=== PATIENT | male | born 1960 | race African-American/Black ===

== ENCOUNTER → 2017-01-06 | Emergency (ER) | payer OTHER ==
[~2017-01-06] VITALS: Ht 167.6 cm; Wt 45.4 kg
[~2017-01-06] MED LIST: ASPIR-LOW81 MG PO; ASPIRIN81 MG PO; ATORVASTATIN CA40 MG PO; CIPRO500 MG PO; CLOPIDOGREL75 MG PO; GLUCOPHAGE500 MG PO; HUMALOG100 UNITS/ SUB-Q; HYDROCODON-ACE1 EA10 PO; INSULIN SYRING1 EA11 MISC; K-PHOS NEUTRAL T1 EA PO; LANTUS100 UNITS/ SUB-Q; LEVEMIR100 UNIT/1 SUB-Q; METOPROLOL SUCC50 MG PO; NOVOLOG FL100 UNIT/1 SUB-Q; NOVOLOG100 UNIT/2 SUB-Q; NOVOLOG100 UNITS/ SUB-Q; OMEPRAZOLE40 MG PO; PANTOPRAZOLE SO40 MG PO; RANITIDINE HCL150 M1 PO; SIMVASTATIN20 MG PO; SUCRALFATE1 GM PO
--- NOTE | 2017-01-07 20:52 | EKG ---
[facility] [address] [facility] [address] [facility] [place] [address] Signed Sinus tachycardia Biatrial enlargement Abnormal ECG When compared with ECG of 01-NOV-2016 11:19, Criteria for Anterior infarct are no longer present Criteria for Anterolateral infarct are no longer present ST no longer elevated in Anterior leads Nonspecific T wave abnormality, improved in Inferior leads Confirmed by STEFANIA ORTIZ MD ([id number]) on 01/07/2017 8:51:58 PM Electronically Signed By: STEFANIA ORTIZ MD 01/07/172051 PATIENT NAME: MACEY PADRON Electrocardiogram DATE OF : 56 PHYSICIAN: STEFANIA ORTIZ MD REPORT #: [id number] REPORT IS CONFIDENTIAL AND NOT TO BE RELEASED WITHOUT AUTHORIZATION
== END ==
LOC: ED 20:21
DX: L03.116 Cellulitis of left lower limb (principal); E10.9 Type 1 diabetes mellitus without complications; I25.2 Old myocardial infarction; F17.200 Nicotine dependence, unspecified, uncomplicated; Z95.5 Presence of coronary angioplasty implant and graft; Z79.4 Long term (current) use of insulin; Z79.899 Other long term (current) drug therapy
CPT/HCPCS: 36415; 71010; 80053; 82010; 82800; 84484; 85025; 93005; 93010; 96361; 96374; 96375; 99284; G0480; J1200; J2405; J2765; J7030

== ENCOUNTER 2017-02-11 08:54 | Inpatient (IN) | payer OTHER ==
[~2017-02-11] VITALS: Ht 167.6 cm; Wt 45.4 kg
[~2017-02-11 08:54] MED LIST changes: -ASPIR-LOW81 MG PO; -INSULIN SYRING1 EA11 MISC; -LEVEMIR100 UNIT/1 SUB-Q; -NOVOLOG100 UNIT/2 SUB-Q; -PANTOPRAZOLE SO40 MG PO
--- NOTE | 2017-02-11 14:40 | NUR ---
ASSISTED NURSE IN GETTING PATIENT SET UP IN ROOM. TOOK VITAL SIGNS AND ASSISTED IN PUTTING ON TELEMETRY.
--- NOTE | 2017-02-11 15:40 | NUR ---
PATIENT ADMIT FROM ED. TO FLOOR VIA STRETCHER. PATIENT SELF TRANSFER TO BED. IV SITE PATENT AND FLUID IS INFUSING. ADMISSION ASSESSMENT COMPLETED. PATIENT REPORTS NO PAIN, SKIN DRY WARM. LUNGS CLEAR BUT DIM IN THE BASES.PERIPHERAL PULSES PRESENT AND PALPABLE. HEART MONITOR IN PLACE. PATIENT IS TACHY IN THE UPPER 100-115BPM. PATIENT WAS MEDICATED.CONTRACTURE NOTED IN THE LEFT ARM. FLACCIDITY IN THE LEFT ARM. SLIGHT LEFT DROOP. HX OF STROKE COUPLE YEARS AGO. POSITIVE BOWEL TONES.
--- NOTE | 2017-02-11 17:00 | NUR ---
2 RNs ASSISTED PATIENT TO BATHROOM, PATIENT IS A LITTLE UNSTEADY. PATIENT ASSISTED BACK TO BED WITH NO DIFFICULTY. CBG CHECKED. PATIENT DENIES ANY PAIN. CALL LIGHT WITHIN REACH.
--- NOTE | 2017-02-11 18:26 | NUR ---
PATIENT ADMIT FROM ED FOR GASTRIC ULCER. CLEAR LIQUID DIET. REPORTS NO PAIN OR NAUSEA SINCE ARRIVING TO THE FLOOR. IV SITE IN RIGHT EJ FLUSHED WELL, IV FLUID INFUSING. PATIENT IS ON TELE #6 SINUS RHYTHM. PATIENT HAD LEFT ARM CONTRACTURE AND FLACIDITY SECONDAY TO STROKE IN THE PAST. CBG CHECK AND S/S INSULIN + LEVEMIR. LAST CBG 167. GENERALIZED WEAKNESS, 1-2 PERSONS ASSIST TO BATHROOM. SKIN INTACT.
--- NOTE | 2017-02-11 19:03 | EKG ---
[facility] [address] [facility] [place] [address] Signed Sinus tachycardia No signs of right ventricular infarction Abnormal ECG When compared with ECG of 11-FEB-2017 09:00, (Unconfirmed) Anterolateral infarct is now present Nonspecific T wave abnormality now evident in Anterior leads Confirmed by STEFANIA ORTIZ MD ([id number]) on 02/11/2017 7:03:47 PM Electronically Signed By: STEFANIA ORTIZ MD 02/11/17 1903 PATIENT NAME: VITOMACEY BRENT Electrocardiogram DATE OF : 56 PHYSICIAN: STEFANIA ORTIZ MD REPORT #: [id number] REPORT IS CONFIDENTIAL AND NOT TO BE RELEASED WITHOUT AUTHORIZATION
--- NOTE | 2017-02-11 19:03 | EKG ---
[facility] [address] [facility] [place] [address] Signed Sinus tachycardia Right atrial enlargement Left ventricular hypertrophy with repolarization abnormality Abnormal ECG When compared with ECG of 06-JAN-2017 20:37, Non-specific change in ST segment in Lateral leads Nonspecific T wave abnormality no longer evident in Anterior leads Confirmed by STEFANIA ORTIZ MD ([id number]) on 02/11/2017 7:03:12 PM Electronically Signed By: STEFANIA ORTIZ MD 02/11/17 1903 PATIENT NAME: VITOMACEY BRENT Electrocardiogram DATE OF : 56 PHYSICIAN: STEFANIA ORTIZ MD REPORT #: [id number] REPORT IS CONFIDENTIAL AND NOT TO BE RELEASED WITHOUT AUTHORIZATION
--- NOTE | 2017-02-11 19:10 | NUR ---
RECEIVED FROM DAY SHIFT RN. PATIENT IS RESTINGI N BED WITH EYES CLOSED. RR 17. CALL LIGHT IN REACH.
--- NOTE | 2017-02-11 21:40 | NUR ---
PATIENT ASSEMENT COMPLETED. PATIENT IS RESTING IN BED. PATIENTS EVENING MEDICATIONS GIVEN PER ORDER. PATIENT DENIES ANY PAIN OR NAUSEA. PATIENT IS ON TELE #6, SR, HR 96. PATIENT ASSISTED TO THE RESTROOM EARLIER BY DNA SEQUENCING ASSOCIATE. PATIENT WAS A SBA AND WAS STEADY ON HER FEET. PATIENT DENIES ANY FURTHER NEEDS AT THIS TIME. CALL LIGHT IN REACH.
--- NOTE | 2017-02-11 23:34 | NUR ---
PATIENT GIVEN SCHEDULED MEDICATION. VITALS TAKEN AND RECORDED. PATIENT GIVEN PRN MAALOX FOR HEARTBURN. PATIENT DENIES ANY FURTHER NEEDS. CALL LIGHT IN REACH.
--- NOTE | 2017-02-12 01:46 | NUR ---
PATIENTS VITALS TAKEN AND RECORDED. PATIENT DENIES ANY NEEDS. CALL LIGHT IN REACH.
--- NOTE | 2017-02-12 03:15 | NUR ---
PATIENT GIVEN PRN MAALOX FOR HEARTBURN. PATIENT DENIES ANY FURTHER NEEDS. CALL LIGHT IN REACH.
--- NOTE | 2017-02-12 04:20 | NUR ---
PATIENT RESTED WELL THROUGHOUT THE SHIFT. PATIENT IS A SBA. PATIENT IS ON CLEARS AND IS TOLERATING INTAKE WELL, NO NAUSEA NOTED. PATIENT USES FWW DURING AMBULATION. PATIENT IS ON TELE #6 AND HAS BEEN IN SR, HR IN THE 80'S. PATIENT IS AAOX3. PATIENT DOES HAVE SLURRED SPEECH AT TIMES. PATIENT HAS HX STROKE, LEFT SIDED WEAKNESS NOTED. PATIENT RECEIVED MAALOX X2 FOR HEARTBURN. PATIENT USES CALL LIGHT APPROPRIATELY.
--- NOTE | 2017-02-12 06:41 | NUR ---
PATIENTS MORNING MEDICATIONS GIVEN PER ORDER. PATIENTS BLOOD PRESSURE IS ON THE LOWER END. PLACED CALL TO DR ORTIZ. VERBAL ORDER RECEIVED, VERIFIED USING THE READBACK METHOD. PATIENT IS NOW RECEIVING A 500ML BOLUS. PATIENT DENIES ANY PAIN OR NAUSEA. PATIENT DENIES ANY HEARTBURN AT THIS TIME. PATIENT DENIES ANY NEEDS AT THIS TIME. CALL LIGHT IN REACH.
--- NOTE | 2017-02-12 07:31 | NUR ---
RECIEVED BEDSIDE REPORT FROM NICOL ROBISON. PT SLEEPING IN BED WITH BLANKETS OVER HEAD, PER HIS USUAL. IV BOLUS RUNNING 500ML/HR. PER MD, FINISH BOLUS AND ENCOURAGE TO USE RESTROOM, THEN BLADDER SCAN AND ADVISE.
--- NOTE | 2017-02-12 08:14 | NUR ---
PT VOIDED 125ML IN URINAL. BLADDER SCAN SHOWED 217ML IN BLADDER. DR ORTIZ ADVISED. HE IS OK WITH OUTPUT AT THIS TIME. AM BLOOD SUGAR 93. PT EATING CLEAR LIQUID TRAY AT THIS TIME.
--- NOTE | 2017-02-12 08:18 | NUR ---
patient was in bed, he asked for food but is on clears diet, he needed bladder scanned.
--- NOTE | 2017-02-12 09:50 | NUR ---
WENT IN TO DO PATEINTS VITAL SIGNS, HE WAS SLEEPING, HE DID NOT WANT A SHOWER.
--- NOTE | 2017-02-12 11:19 | NUR ---
PATIENT CALLING OUT. WENT TO ROOM. WARM BLANKET GIVEN TO PATIENT. ASSISTED WITH GETTING COMFORTABLE IN BED.
--- NOTE | 2017-02-12 11:39 | NUR ---
PT IS IN CHAIR AFTER PHYSICAL THERAPY EVAL. PT REQUESTED LINENS CHANGED AND SHOWER. LINENS CHANGED, SHOWER PLANNED FOR AFTER LUNCH.
--- NOTE | 2017-02-12 14:38 | NUR ---
SUPERVISOR GROUNDS REPORTED PT VOIDED 400ML AND HAD A BM PRIOR TO HIS SHOWER. SUPERVISOR GROUNDS REPORTED THAT HE TOLERATED WELL.
--- NOTE | 2017-02-12 15:33 | NUR ---
PATEINT HAD A SHOWER, AND DID WELL, AFTER HE LAID DOWN AND RELAXED IN BED WITH WARM BLANKETS.
--- NOTE | 2017-02-12 18:04 | NUR ---
PT UP WITH PHYSICAL THERAPY, USE CANE WHEN AMBULATING. PT NEEDS ENCOURAGEMENT TO GET UP AND VOID, BUT PASSING QS URINE. BM TODAY, SHOWER TODAY. ADVANCED DIET TO FULL LIQUIDS. PT TOLERATING WELL, NO NAUSEA/VOMITING. PT REPORTS BEING "VERY HUNGRY". LR AT 100ML/HR UNTIL EATING /DRINKING WELL.
--- NOTE | 2017-02-12 20:01 | NUR ---
recieved bedside report from dayshift carlton sloan. rn reported to night rn that md vee'd tele today. tele was laying on bedside table. cleaned tele and returned to ccu.
--- NOTE | 2017-02-12 22:25 | NUR ---
PT LAYING IN BED, WATCHING TV. PLEASENT DEMEANOR, ALERT AND ORIENTED X4, COOPERATIVE. PT EATING CHICKEN NOODLE SOUP. GAVE PM MEDICATION. GAVE TYLENOL FOR SLIGHTLY ELEVATED TEMPERATURE. AFTER GIVING THE MEDICAITONS AND RT INSTRUCTING ON USING INCENTIVE SPIROMETER, PT COMPLAINED OF NAUSEA AND DRY HEAVED, NO EMESIS THOUGH. GAVE ZOFRAN FOR NAUSEA. AFTER A FEW MINUTES NAUSEA PASSED. WILL CONTINUE TO MONITOR PT. PT HAS NO FURTHER NEEDS AT THIS TIME. CALL LIGHT IN REACH.
--- NOTE | 2017-02-13 00:40 | NUR ---
PT CALLED NURSES STATION, REPORTED FEELING LIKE HIS "BLOOD SUGAR IS LOW." BS 46, GAVE APPLE JUICE AND CHOCOLATE MILK; PT ALERT AND ORIENTED X4, BUT STATES HE FEELS COLD. RECHECKED BS, BS NOW 88. WILL CONTINUE TO MONITOR CLOSELY.
--- NOTE | 2017-02-13 02:24 | NUR ---
PT BS 150. HELD SS DUE TO LOW BS EARLER IN SHIFT. PT AWAKE, ALERT AND ORIENTED X4. NO COMPLAINTS AT THIS TIME. PLEASENT. CALL LIGHT IN REACH.
--- NOTE | 2017-02-13 05:08 | NUR ---
PT HAD SLEPT WELL MAJORITY OF SHIFT. EASILY AROUSED BY VOICE. ALERT AND ORIENTED X4. BS LOW OVERNIGHT, GAVE CHOCOLATE MILK AND JUICE, CAME UP TO WNL. HELD 0200 DOSE OF NOVOLOG FOR BS OF 150. PT USES CALL LIGHT APPROPRIATLY.
--- NOTE | 2017-02-13 07:25 | NUR ---
RECIEVED BEDSIDE REPORT FROM NICOL LLAMAS. PT IN BED, AWAKE, ALERT. AWAITING ARRIVAL OF BREAKFAST, STATED THAT HE IS HUNGRY.
--- NOTE | 2017-02-13 09:00 | NUR ---
PT REQUESTED DIET TO BE ADVANCED. ATE VERY LITTLE OF FULL LIQUID BREAKFAST. NOTFIED DR. ORTIZ VIA TELEPHONE THAT PT REQUESTED DIET BE ADVANCED, RECIEVED TORB TO ADVANCE DIET TO 1800 CALORIE ADA DIET.
--- NOTE | 2017-02-13 09:17 | NUR ---
PT ASSISTED TO ORDER ADA DIET BREAKFAST. PT DENIED PAIN. AM MEDICATIONS GIVEN. PT DENIED OTHER NEEDS.
--- NOTE | 2017-02-13 09:32 | NUR ---
PATIENT READY FOR SOLID FOOD BREAKFAST. TRAY BROUGHT IN WITH BOATENG, EGGS, AND TOAST. PATIENT ASKING IF WE COULD HELP HIM WITH HIS CALORIES. YES, WE WILL HELP HIM WITH ORDERING THE RIGHT AMOUNT OF FOOD. HE DOESN'T KNOW WHAT HIS NORMAL WEIGHT IS. HE IS RECENTLY HOMELESS. CANNOT TOLERATE TOMATO PRODUCTS DUE TO GASTRIC ULCER. COULD PROVIDE SOME GLUCERNA FOR PATIENT TO TAKE WITH HIM UPON DISCHARGE IF NEEDED.
--- NOTE | 2017-02-13 11:10 | NUR ---
CHECKED PT'S BG, 168. PT IN BED, STATED THAT HE WANTS TO REST. LIGHTS OFF PER PT REQUEST. DENIED NEEDS.
--- NOTE | 2017-02-13 14:03 | NUR ---
PT LAYING IN BED,ALERT AND ORIENTED. HE WAS STILL WORKING ON LUNCH. VERY PLEASANT DEMEANOR, SAID HE HAD SLEPT PRETTY GOOD. PT MENTIONED THAT HE WANTED TO REST, BUT WOULD LIKE FOR ME TO PRAY FOR HIM, WHICH I DID. WILL FOLLOW NEEDED
--- NOTE | 2017-02-13 14:08 | NUR ---
DID BLOOD SUGAR CHECK THIS MORNING AND AFTERNOON. WARM BLANKETS.
--- NOTE | 2017-02-13 15:27 | NUR ---
PATIENT QUEARIED TO WHERE HE WOULD LIKE TO BE DISCHARGED TO HE IS CURRENTLY HOMELESS. PATIENT FIRST STATED HIS SISTER'S HOME ([facility] [phone]) NAME AND NUMBER PROVIDED BY Cristina MACEY VITO. SPOKE TO PATIENT'S SISTER, LET HER KNOW WHO I WAS AND REC'D HER NUMBER FROM THE PATIENT. ASKED IF SHE WAS AWARE OF HER BROTHERS PLAN AND IF SHE WAS IN AGREEANCE. PATIENT'S SISTER KISHA STATED SHE WAS NOT PHYSICALLY CAPABLE OF TAKING CARE OF HER BROTHER. THE PATIENT IS HOMELESS AND NOT MANY OPTIONS FOR PLACEMENT. I CONTACTED THE [facility] FOR THE HOMELESS. THEY HAVE DORM PLACEMENT AVAILABLE THAT THE PATIENT CAN CHECK IN ANYTIME AFTER 1500 SEVEN DAYS A WEEK. THEY WILL PROVIDE THE PATIENT WITH A CLEAN AND SOBER ENVIRONMENT, TWO MEALS A DAY, HOT SHOWERS AND LAUNDRY ROM, SPIRITUAL ENCOURAGEMENT, RECOVERY PROGRAMS, LIFE COACHING, AND 30 DAY STAY FOR MEN. AT THE END OF THE 30 DAYS THE PATIENT CAN THEN OPT FOR ONE OF THE THREE OPTIONS: (1) REBUILDERS PROGRAM: A SPIRITUAL, LIFE TRANSFORMATION PROGRAM (12-14 MONTHS). (2) CONNECTIONS: AN EXTENDED-STAY, WORK PROGRAM (UP TO 4 MONTHS) OR (3) SELF EXIT: ALTERNATIVE HOUSING. SPOKE TO PATIENT WITH THE AVAILABLE OPTIONS AND HE IS IN AGREEANCE. THE PLAN IS TO D/C PATIENT AND SEND HIM WITH A CARE RIDE TO BUS MANAGER OF ORGANIZATIONAL DEVELOPMENT AT [facility] BEFORE 1330. BUS ARRIVES AT 1330 TO TAKE TO [facility] WHERE HE WILL BE DROPPED OFF. HE WILL THEN WALK A TOTAL OF THREE BLOCKS STRAIGHT DOWN THE ROAD TO HOUSING LOCATION WHERE HE CAN THEN CHECK IN. WE WILL PROVIDE PATIENT WITH FULL INSTRUCTION AND DETAILED MAP OF WHERE HE WILL GO AFTER DISCHARGE AND TO HIS NEW PLACEMENT LOCATION.
--- NOTE | 2017-02-13 17:47 | NUR ---
PATIENT HAD GIVEN SUMMER CHW NAME AND NUMBER OF SISTER. HE STATED HE WANTED A BUS TICKET TO MAN TO GO LIVE WITH HER. SISTER DENIES KNOWING THIS AND CANNOT TAKE CARE OF HIM. KENN WORKED WITH HIM FOR A PLAN ON GETTING TO A SKILLED NURSING IN [place] FOR DISCHARGE. I SPOKE TO PATIENT IN THE ROOM. HE STATES HE CANNOT RETURN TO A FRIENDS HOUSE HERE WHERE HE WAS STAYING. ASKED IF HE HAD BELONGINGS THERE, HE STATED HE DID AND A WALKER. I SUGGESTED HE CALL THEM TO SEE IF THEY CAN BRING SOME WARM CLOTHES AND HIS WALKER HERE FOR DISCHARGE. HE STATED HE DOESN'T HAVE ENOUGH MEDICATIONS LEFT. WE DISCUSSED HELPING HIM WITH MEDS OR TRANSPORT TO A PHARMACY FOR HIM TO REFILL. WE DISCUSSED A PLAN FOR A SKILLED NURSING SO HE IS OUT OF THE ELEMENTS. HE STATES HE WANTS TO GO TO [facility] TO HIS DADS. I TOLD HIM WE CAN HELP HIM GET TO THE SKILLED NURSING, BUT HE NEEDS TO CONTACT FAMILY ON HIS OWN. PATIENT HAS A WORKING CELL PHONE. DISCUSSED THAT HE WILL BE DISCHARGED TOMORROW MOST LIKELY. EXPLAINED THAT UNLESS HE WANTS HELP GETTING TO THE SKILLED NURSING, HE CAN MAKE CALLS AND ARRANGE GOING SOMEWHERE ELSE ON HIS OWN.
--- NOTE | 2017-02-13 18:08 | NUR ---
PT IN BED, AWAKE, ALERT, ORIENTED X 4. DENIED PAIN, DENIED NAUSEA. PT REPORTED THAT HIS "DAUGHTER" BROUGHT HIM CLOTHES, BUT NO WALKER WAS BROUGHT FOR PT. THIS RN ASKED PT IF SOMEONE WOULD BE BRINING HIS WALKER, HE STATED THAT NO ONE WAS ABLE TO.
--- NOTE | 2017-02-13 18:27 | NUR ---
PT ADVANCED TO ADA DIET. UP WITH 1 PERSON ASSIST WITH CANE, REFUSED TO WORK WITH PHYSICAL THERAPY THIS AM, AND AFTERNOON, AND REQUIRED LOTS OF ENCOURAGEMENT TO GET UP OUT OF BED TO AMBULATE IN HALLS WITH PHYSICAL THERAPY. DENIED PAIN, DID C/O HIS STOMACH FEELING "UPSET" AFTER ATTEMPTING TO EAT GRILLED CHICKEN BREAST, BUT DENIED NAUSEA. HAS LR INFUSING AT 75CC/HR UNTIL CURRENT BAG COMPLETE, THEN PT TO BE HEPARIN LOCKED.
[2017-02-13] MEDS ORDERED: ASPIR-LOW81 MG PO ×2 (19:07→19:22)
--- NOTE | 2017-02-13 19:10 | NUR ---
BEDSIDE REPORT RECEIVED FROM NICOL LE. PT AWAKE IN BED, SCDS ON, LR INFUSING AT 100 ML/HR. PT URINAL EMPTIED BY NICOL LLAMAS. PT HAS NO REQUESTS AT THIS TIME. CALL LIGHT IS IN REACH. WILL CONTINUE TO MONITOR.
[2017-02-13] MEDS ORDERED: LEVEMIR100 UNIT/1 SUB-Q (19:15)
[2017-02-13] MEDS ORDERED: NOVOLOG100 UNIT/2 SUB-Q (19:15)
[2017-02-13] MEDS ORDERED: INSULIN SYRING1 EA11 MISC (19:15)
[2017-02-13] MEDS ORDERED: PANTOPRAZOLE SO40 MG PO (19:15)
[2017-02-13] MEDS ORDERED: CLOPIDOGREL75 MG PO (19:15)
[2017-02-13] MEDS ORDERED: SUCRALFATE1 GM PO (19:15)
[2017-02-13] MEDS ORDERED: METOPROLOL SUCC50 MG PO (19:15)
[2017-02-13] MEDS ORDERED: ATORVASTATIN CA40 MG PO (19:15)
--- NOTE | 2017-02-13 19:54 | NUR ---
PATIENT CALLED AND ASKED FOR CRACKERS AND PEANUT BUTTER. I PUT PEANUT BUTTER ON TO CRACKERS PER PATIENT CANT USE HIS ARM.
--- NOTE | 2017-02-13 23:48 | NUR ---
PT ASSESSMENT COMPLETE. PT TEMPERATURE 100.0, ADMINISTERED PRN TYLENOL. PT'S LUNGS CLEAR THROUGHOUT ALL LOBES. PT ABDOMEN SOFT, BOWEL TONES ACTIVE X 4. PT SALINE LOCKED. SCDS ON. PT ASSISTED W PEANUT BUTTER AND CRACKER PREPARATION FOR SNACK. CALL LIGHT IN REACH. WILL CONTINUE TO MONITOR.
--- NOTE | 2017-02-13 23:52 | NUR ---
PT SLEEPING AT THIS TIME. TEMPERATURE REASSESSED, 99.5 TEMPORAL. WILL CONTINUE TO MONITOR. PT HAS CALL LIGHT IN REACH, SCDS ON.
--- NOTE | 2017-02-14 02:00 | NUR ---
PT SLEEPING AT THIS TIME. BREATHING EQUALLY BILATERALLY. LIGHTS OFF IN ROOM.
--- NOTE | 2017-02-14 03:24 | NUR ---
PT ASSESSMENT COMPLETE. PT AWAKES TO VOICE UPON ENTERING ROOM. PT ALERT, ORIENTED. CBG 120 AT THIS TIME. PT REQUESTING ORANGE JUICE, PEANUT BUTTER AND CRACKERS. PTS LUNGS CLEAR, DIMINISHED THROUGHOUT ALL LOBES. TEMPERTAURE REASSESSED, 99.0 AT THIS TIME, ENCOURAGED PT TO USE IS, PT DEMONSTRATED X 3 WITH BEST EFFORT OF 1750 MLS. CALL LIGHT IN REACH.
--- NOTE | 2017-02-14 05:24 | NUR ---
PT APPEARED TO BE SLEEPING. WOKE EASILY TO VOICE. NO APPARENT DISTRESS. APPEARED TO QUICKLY FALL BACK ASLEEP AFTER VITALS TAKEN. PLEASENT.
--- NOTE | 2017-02-14 06:54 | NUR ---
PT SLEEPING. AWAKENS TO RN VOICE. PT HAS NO REQUESTS AT THIS TIME. CALL LIGHT IN REACH.
--- NOTE | 2017-02-14 06:57 | NUR ---
PT IN BED FOR ENTIRE SHIFT. PT HAD LOW GRADE FEVER OF 100.0 AT BEGINNING OF SHIFT, RESOLVED TO 99.0 AT RECHECK. PT DENIED PAIN THROUGHOUT SHIFT. PT USED IS INSTRUCTED, SLEPT MOST OF NIGHT, SCD'S IN PLACE.
--- NOTE | 2017-02-14 07:28 | NUR ---
RECIEVED BEDSIDE REPORT FROM YOUSUF, Cm. PT AWAKE, DENIED NEEDS.
--- NOTE | 2017-02-14 08:22 | NUR ---
PATIENT IN BED, READY FOR BREAKFAST. ROOM TIDIED, WHITEBOARD UPDATED.
--- NOTE | 2017-02-14 08:36 | NUR ---
Patient wants to keep breakfast tray in room, in case he gets hungry after his nap. Otherwise doing well, does not need anything else at this time.
--- NOTE | 2017-02-14 09:18 | NUR ---
INFLUENZA VACCINE ORDERED. THIS RN ASKED PT IF HE HAD HAD THE INFLUENZA VACCINE THIS SEASON, PT STATED THAT HE HAD NOT, BUT THAT HE WOULD NOT ACCEPT THE VACCINE.
--- NOTE | 2017-02-14 11:30 | NUR ---
PATIENT IS SITTING UP ON SIDE OF BED. ALL DRESSED AND READY FOR DISCHARGE.
--- NOTE | 2017-02-14 11:38 | NUR ---
DISCHARGE INSTRUCTIONS GIVEN TO PT. QUESTIONS ASKED AND ANSWERED. PT VERBALIZED UNDERSTANDING. PT IS CURRENTLY SITTING UP IN BED, HAS STREET CLOTHES ON.
== END 2017-02-14 12:48 | disposition home or self-care (01) | DRG 384 ==
LOC: ED 08:54 → MS 14:13
PROVIDERS: ADMIT Internal Medicine
DX: K25.9 Gastric ulcer, unspecified as acute or chronic, without hemorrhage or perforation (principal); E86.0 Dehydration; Z59.0 Homelessness; I25.10 Atherosclerotic heart disease of native coronary artery without angina pectoris; E10.65 Type 1 diabetes mellitus with hyperglycemia; Z79.4 Long term (current) use of insulin; I25.2 Old myocardial infarction; E78.5 Hyperlipidemia, unspecified; Z86.73 Personal history of transient ischemic attack (TIA), and cerebral infarction without residual deficits; D50.9 Iron deficiency anemia, unspecified
CPT/HCPCS: 36415; 71010; 74177; 80053; 81001; 82803; 83036; 83605; 83690; 83735; 84484; 85025; 87040; 87502; 93005; 93010; 94668; 94760; 96361; 96374; 97110; 97162; 97530; 99285; J2405; J3475; J7030; J7120; Q9967

== ENCOUNTER 2018-04-28 10:06 | Emergency (ER) | payer OTHER ==
[~2018-04-28] VITALS: Ht 167.6 cm; Wt 45.4 kg
[~2018-04-28 10:06] MED LIST changes: +ASPIR-LOW81 MG PO; +INSULIN SYRING1 EA11 MISC; +LEVEMIR100 UNIT/1 SUB-Q; +NOVOLOG100 UNIT/2 SUB-Q; +PANTOPRAZOLE SO40 MG PO
--- OUTSIDE RECORDS SUMMARY | 2018-04-28 10:08 | XMS ---
PreManage Notification: MACEY PADRON Security Working Foreman Events No recent Security Events currently on file CRITERIA MET - Group Notification CARE PROVIDERS [facility] Case or Water Pump Installer 11/10/2016-[facility] PHONE: [phone] DR CHARLY MILES Primary Care 10/25/2016-Current PHONE: [phone] Pool has no Care Guidelines for this patient. EKerline VISIT COUNT (12 MO.) Elyssa Cavazos TOTAL 1 NOTE: Visits indicate total known visits. ED/UCC VISIT TRACKING (12 MO.) 04/28/2018 10:07 [facility] [place] TYPE: Emergency COMPLAINT: - NOSE BLEED INPATIENT VISIT TRACKING (12 MO.) No inpatient visits to display in this time frame [email or web address]
== END 2018-04-28 11:41 | disposition home or self-care (01) ==
LOC: ED 10:06
DX: R04.0 Epistaxis (principal); E10.9 Type 1 diabetes mellitus without complications; F17.200 Nicotine dependence, unspecified, uncomplicated; Z79.899 Other long term (current) drug therapy; I25.2 Old myocardial infarction
CPT/HCPCS: 99283

== ENCOUNTER 2020-10-19 02:02 | Emergency (ER) | payer OTHER ==
[~2020-10-19] VITALS: Ht 167.6 cm; Wt 45.4 kg
== END 2020-10-19 06:39 | disposition home or self-care (01) ==
LOC: ED 02:02
DX: M25.552 Pain in left hip (principal); G89.29 Other chronic pain; F15.10 Other stimulant abuse, uncomplicated; I25.2 Old myocardial infarction; E10.9 Type 1 diabetes mellitus without complications; F17.200 Nicotine dependence, unspecified, uncomplicated; Z79.899 Other long term (current) drug therapy; Z79.82 Long term (current) use of aspirin
CPT/HCPCS: 72170; 80053; 81001; 85025; 99284-25; G0480

== ENCOUNTER 2020-10-27 11:55 | Emergency (ER) | payer OTHER ==
[~2020-10-27] VITALS: Ht 167.6 cm; Wt 45.4 kg
--- OUTSIDE RECORDS SUMMARY | 2020-10-27 12:04 | XMS ---
PreManage Notification: MACEY PADRON Security Senior Net Developer Architect Events No recent Security Events currently on file CRITERIA MET - [facility] - 2 Visits in 30 Days CARE PROVIDERS CHARLY MILES [facility] 04/30/2018-Current PHONE: [phone] Polo has no Care Guidelines for this patient. Jennifer VISIT COUNT (12 MO.) 2 [facility] TOTAL 2 NOTE: Visits indicate total known visits. ED/UCC VISIT TRACKING (12 MO.) 10/27/2020 11:56 [facility] [place] TYPE: Emergency COMPLAINT: - SWELLING/PAIN IN FEET, DIABETIC 10/19/2020 02:02 [facility] [place] TYPE: Emergency COMPLAINT: - LT HIP/BACK PAIN DIAGNOSES: - Other stimulant abuse, uncomplicated - Old myocardial infarction - Nicotine dependence, unspecified, uncomplicated - Other chronic pain - termite inspector (current) use of aspirin - Pain in left hip - Type 1 diabetes mellitus without complications - Other ad terminal makeup operator (current) drug therapy INPATIENT VISIT TRACKING (12 MO.) No inpatient visits to display in this time frame [email or web address]
--- NOTE | 2020-10-28 00:46 | EKG ---
[facility] [address] [facility] [place] [address] Signed Sinus tachycardia Minimal voltage criteria for LVH, may be normal variant Borderline ECG When compared with ECG of 11-FEB-2017 11:29, Criteria for Anterolateral infarct are no longer present ST elevation now present in Anterior leads Nonspecific T wave abnormality no longer evident in Anterior leads Confirmed by JOSE ALMAGUER MD ([id number]) on 10/28/2020 12:46:26 AM Electronically Signed By: JOSE ALMAGUER MD 10/28/20 0046 PATIENT NAME: MACEY PADRON Electrocardiogram DATE OF : 56 PHYSICIAN: JOSE ALMAGUER MD REPORT #: [id number] REPORT IS CONFIDENTIAL AND NOT TO BE RELEASED WITHOUT AUTHORIZATION
== END 2020-10-27 18:39 | disposition home or self-care (01) ==
LOC: ED 11:55
DX: E10.9 Type 1 diabetes mellitus without complications (principal); R60.0 Localized edema; I10 Essential (primary) hypertension; E83.42 Hypomagnesemia; I25.2 Old myocardial infarction; F17.200 Nicotine dependence, unspecified, uncomplicated; Z79.899 Other long term (current) drug therapy; Z79.4 Long term (current) use of insulin; Z79.82 Long term (current) use of aspirin
CPT/HCPCS: 71045; 80053; 81001; 83735; 84484; 85025; 93005; 93010; 93970; 99284-25; A9270

== ENCOUNTER 2021-02-15 05:20 | Emergency (ER) | payer OTHER ==
[~2021-02-15] VITALS: Ht 167.6 cm; Wt 54.4 kg
[2021-02-15] MEDS ORDERED: ONDANSETRON ODT4 MG PO (17:31)
--- NOTE | 2021-02-16 13:36 | EKG ---
[facility] [address] [place] [address] Signed Sinus tachycardia with occasional premature ventricular complexes Right atrial enlargement Minimal voltage criteria for LVH, may be normal variant ( Sokolow-Pak ) Nonspecific T wave abnormality Abnormal ECG When compared with ECG of 27-OCT-2020 12:31, premature ventricular complexes are now present ST no longer elevated in Anterior leads Nonspecific T wave abnormality now evident in Anterior leads Confirmed by STEFANIA ORTIZ MD ([id number]) on 02/16/2021 1:35:53 PM Electronically Signed By: STEFANIA ORTIZ MD 02/16/21 1336 PATIENT NAME: MACEY PADRON Electrocardiogram DATE OF : 56 PHYSICIAN: STEFANIA ORTIZ MD REPORT #: [id number] REPORT IS CONFIDENTIAL AND NOT TO BE RELEASED WITHOUT AUTHORIZATION
[2021-02-16] MEDS ORDERED: ONDANSETRON ODT4 MG SL (14:36)
[2021-02-16] MEDS ORDERED: PRILOSEC OTC20 MG PO (14:36)
== END 2021-02-15 18:19 | disposition home or self-care (01) ==
LOC: ED 05:20
DX: R11.2 Nausea with vomiting, unspecified (principal); F15.10 Other stimulant abuse, uncomplicated; I25.2 Old myocardial infarction; E10.9 Type 1 diabetes mellitus without complications; F17.200 Nicotine dependence, unspecified, uncomplicated; Z79.899 Other long term (current) drug therapy; Z79.82 Long term (current) use of aspirin
CPT/HCPCS: 73502; 74022; 80053; 81001; 82010; 82800; 85025; 85610; 85730; 93005; 93010; 96374; 96375; 99284-25; C9803; G0480; J1815; J2405; J2765; J7030; U0003

== ENCOUNTER 2021-02-16 11:01 | Emergency (ER) | payer OTHER ==
[~2021-02-16] VITALS: Ht 167.6 cm; Wt 54.9 kg
[~2021-02-16 11:01] MED LIST changes: +ONDANSETRON ODT4 MG PO
--- OUTSIDE RECORDS SUMMARY | 2021-02-16 11:08 | XMS ---
PreManage Notification: MACEY PADRON Security Wire Rigger Events No recent Security Events currently on file CRITERIA MET - [facility] - 2 Visits in 30 Days CARE PROVIDERS CHARLY MILES [facility] 04/30/2018-Current PHONE: [phone] Berenice Garcia Inspector Hot Forgings/Director Food And Beverage 11/25/2020-Current PHONE: [phone] Polo has no Care Guidelines for this patient. Jennifer VISIT COUNT (12 MO.) [address] [place] [address] TOTAL 4 NOTE: Visits indicate total known visits. ED/UCC VISIT TRACKING (12 MO.) 02/16/2021 11:02 [facility] [place] TYPE: Emergency COMPLAINT: - VOMITING 02/15/2021 05:20 [facility] [place] TYPE: Emergency COMPLAINT: - WEAKNESS 10/27/2020 11:[address] [facility] [place] TYPE: Emergency COMPLAINT: - SWELLING/PAIN IN FEET, DIABETIC DIAGNOSES: - Old myocardial infarction - Localized edema - Nicotine dependence, unspecified, uncomplicated - Type 1 diabetes mellitus without complications - ferry terminal agent (current) use of insulin - Hypomagnesemia - Type 2 diabetes mellitus without complications - skilled nursing (current) use of aspirin - Other alf (current) drug therapy - Essential (primary) hypertension 10/19/2020 02:02 [facility] [place] TYPE: Emergency COMPLAINT: - LT HIP/BACK PAIN DIAGNOSES: - Other stimulant abuse, uncomplicated - Old myocardial infarction - Nicotine dependence, unspecified, uncomplicated - Other chronic pain - ferry terminal agent (current) use of aspirin - Pain in left hip - Type 1 diabetes mellitus without complications - Other keno terminal operator (current) drug therapy INPATIENT VISIT TRACKING (12 MO.) No inpatient visits to display in this time frame [email or web address]
[2021-02-16] MEDS ORDERED: ONDANSETRON ODT4 MG SL (14:36)
[2021-02-16] MEDS ORDERED: PRILOSEC OTC20 MG PO (14:36)
== END 2021-02-16 19:23 | disposition home or self-care (01) ==
LOC: ED 11:01
DX: K86.0 Alcohol-induced chronic pancreatitis (principal); F10.129 Alcohol abuse with intoxication, unspecified; K20.90 Esophagitis, unspecified without bleeding; I25.2 Old myocardial infarction; E10.9 Type 1 diabetes mellitus without complications; F17.200 Nicotine dependence, unspecified, uncomplicated; Z79.899 Other long term (current) drug therapy; Z79.4 Long term (current) use of insulin
CPT/HCPCS: 74177; 80048; 83690; 85025; 96375; 99284-25; C9113; J1200; J1630; J3480; J7030; J7060; Q9967